=== PATIENT | female | born 1985 | race Caucasian/White ===

== ENCOUNTER 2017-09-04 19:49 | Outpatient (CLI) | payer BC ==
[2017-09-04 20:21] LABS: ADD UMIC YES; UR ASCORBIC ACID NEGATIVE (NEGATIVE); UR BACTERIA FEW /HPF (NONE SEEN); UR BILIRUBIN (Dip) NEGATIVE (NEGATIVE); UR BLOOD (Dip) NEGATIVE (NEGATIVE); UR CLARITY CLEAR (CLEAR); UR COLOR STRAW (YELLOW); UR GLUCOSE (Dip) NEGATIVE (NEGATIVE); UR KETONES (Dip) NEGATIVE (NEGATIVE); UR LEUKOCYTE ESTERASE (Dip) 1+ Leu/ul (NEGATIVE); UR NITRITE (Dip) NEGATIVE (NEGATIVE); UR RBC 0 /HPF (0-5); UR SQUAMOUS EPITHELIAL CELL FEW /HPF (FEW); UR TOTAL PROTEIN (Dip) NEGATIVE (NEGATIVE); UR UROBILINOGEN (Dip) NEGATIVE (NEGATIVE); UR WBC 1 /HPF (0-5)
[2017-09-04 21:31] LABS: RUPTURE FETAL MEMBRANES NEGATIVE (NEGATIVE)
== END 2017-09-04 22:10 | disposition home or self-care (01) ==
LOC: OBT 19:49 → L-D 19:50 → OBT 22:10
DX: O42.913 Preterm premature rupture of membranes, unspecified as to length of time between rupture and onset of labor, third trimester (principal); Z3A.31 31 weeks gestation of pregnancy
CPT/HCPCS: 76815; 81001; 84112

== ENCOUNTER 2017-10-16 19:53 | Inpatient (IN) | payer BC, OTHER ==
[2017-10-16 22:44] LABS: ALANINE AMINOTRANSFERASE 310 IU/L (13-69); ALBUMIN 3.1 g/dl (3.3-4.9); ALKALINE PHOSPHATASE 222 IU/L (42-121); ASPARTATE AMINO TRANSFERASE 97 IU/L (15-46); BILIRUBIN,INDIRECT 0.3 mg/dl (0-1.1); BILIRUBIN,TOTAL 0.3 mg/dl (0.2-1.3); TOTAL PROTEIN 6.2 g/dl (6.1-8.1)
[2017-10-16 22:57] LABS: ADD MAN DIFF? NO
[2017-10-16 22:59] LABS: WHITE BLOOD COUNT 6.5 10^3/ul (4.8-10.8)
[2017-10-16 22:59] LABS: BASOPHILS % 0.5 % (0.0-2.0); EOSINOPHILS # 0.1 10^3/ul (0.0-0.5); EOSINOPHILS % 1.7 % (0.0-7.0); HEMATOCRIT 32.6 % (37.0-47.0); HEMOGLOBIN 10.8 g/dl (12.0-16.0); LYMPHOCYTES # 1.7 10^3/ul (0.8-2.9); LYMPHOCYTES % 26.6 % (15.0-51.0); MEAN CORPUSCULAR HGB CONC 33.1 g/dl (32.0-37.0); MEAN CORPUSCULAR VOLUME 96.4 fl (82.0-101.0); MEAN PLATELET VOLUME 11.4 fl (7.4-10.4); MONOCYTE # 0.7 10^3/ul (0.3-0.9); MONOCYTES % 10.1 % (0.0-11.0); NEUTROPHIL # 3.9 10^3/ul (1.6-7.5); NEUTROPHILS % 60.3 % (39.0-77.0); PLATELET COUNT 254 10^3/UL (140-415); RED BLOOD COUNT 3.38 10^6/ul (4.20-5.40); RED CELL DISTRIBUTION WIDTH 12.6 % (11.5-14.5)
[2017-10-16] MEDS ORDERED: MISOPROSTOL 200 MCG TAB PR (23:00)
[2017-10-16] MEDS ORDERED: OXYTOCIN 30 UNITS/LR 500 ML IV (23:00)
[2017-10-16] MEDS ORDERED: CARBOPROST 250 MCG INJ IM (23:00)
[2017-10-16] MEDS ORDERED: BUTORPHANOL 2 MG INJ IV (23:00)
[2017-10-16] MEDS ORDERED: LIDOCAINE 1% (MPF) 30 ML INJ INJ (23:00)
[2017-10-16] MEDS ORDERED: METHYLERGONOVINE 0.2 MG INJ IM (23:00)
[2017-10-16 23:02] LABS: INR 0.91; PROTIME 12.3 Sec (11.9-14.9)
[2017-10-16 23:03] LABS: PARTIAL THROMBOPLASTIN TIME 27.1 Sec (25.0-35.0)
[2017-10-16] MEDS: LACTATED RINGER'S 1,000 ML IV* (23:46)
[2017-10-17 00:21] LABS: HEPATITIS B SURFACE ANTIGEN NEGATIVE (NEGATIVE)
[2017-10-17] MEDS: LACTATED RINGER'S 1,000 ML IV* ×3 (07:16→22:07)
[2017-10-17] MEDS: ACETAMINOPHEN 325 MG TAB PO ×2 (14:05→19:04)
[2017-10-17] MEDS: OXYTOCIN 30 UNITS/LR 500 ML IV (14:08)
[2017-10-17 22:24] LABS: RAPID PLASMA REAGIN NONREACTIVE (NR)
[2017-10-18] MEDS: LACTATED RINGER'S 1,000 ML IV* ×4 (00:16→20:13)
[2017-10-18] MEDS ORDERED: FENTAnyl 2MCG/ML-ROPIV 0.2% 100 ML (00:17)
[2017-10-18] MEDS ORDERED: NALOXONE (0.4 MG/ML) INJ IV (00:30)
[2017-10-18] MEDS: ASA/ACETAMINOPHEN/CAFF TAB PO (01:00)
[2017-10-18] MEDS: FENTAnyl 2MCG/ML-ROPIV 0.2% 100 ML BAG EPI ×2 (08:17→17:43)
[2017-10-18] MEDS: ONDANSETRON 4 MG INJ IV (08:35)
[2017-10-18] MEDS ORDERED: ASA/ACETAMINOPHEN/CAFF TAB PO (17:30)
[2017-10-18] MEDS: OXYTOCIN 30 UNITS/LR 500 ML IV (21:11)
[2017-10-19] MEDS: FENTAnyl 2MCG/ML-ROPIV 0.2% 100 ML BAG EPI ×3 (02:08→16:41)
[2017-10-19] MEDS: LACTATED RINGER'S 1,000 ML IV* ×3 (04:19→19:16)
[2017-10-19 12:44] LABS: HEPATITIS B SURFACE ANTIGEN NEGATIVE (NEGATIVE)
[2017-10-19] MEDS: OXYTOCIN 30 UNITS/LR 500 ML IV (13:32)
[2017-10-20] MEDS: LACTATED RINGER'S 1,000 ML IV* ×2 (00:15→08:22)
[2017-10-20] MEDS: FENTAnyl 2MCG/ML-ROPIV 0.2% 100 ML BAG EPI ×2 (02:08→10:22)
[2017-10-20] MEDS: OXYTOCIN 30 UNITS/LR 500 ML IV ×3 (03:16→18:03)
[2017-10-20] MEDS ORDERED: DINOPROSTONE 10 MG VAG SUPP VAG (06:00)
[2017-10-20] MEDS: IBUPROFEN 600 MG TAB PO ×2 (15:05→17:55)
[2017-10-20] MEDS: OXYCODONE/ASPIRIN (4.88/325) TAB PO (16:00)
[2017-10-20] MEDS ORDERED: ONDANSETRON 4 MG INJ IV (16:00)
[2017-10-20] MEDS ORDERED: OXYCODONE/ASPIRIN (4.88/325) TAB PO (16:00)
[2017-10-20] MEDS ORDERED: DIBUCAINE 1% 30 GM OINT PR (16:00)
[2017-10-20] MEDS ORDERED: HYDROCODONE/APAP (5/325) TAB PO ×2 (16:00)
[2017-10-20] MEDS: WITCH HAZEL/GLYCERIN PAD PR (16:01)
[2017-10-20] MEDS: BENZOCAINE 20% 56 ML SPRAY TOP (16:01)
[2017-10-20] MEDS: LANOLIN 7 GM TUBE TOP (16:01)
[2017-10-20] MEDS: SENNA/DOCUSATE NA (8.6MG/50MG) TAB PO (20:29)
[2017-10-20] MEDS: ACETAMINOPHEN 325 MG TAB PO (20:33)
[2017-10-21] MEDS: ACETAMINOPHEN 325 MG TAB PO ×5 (00:43→21:32)
[2017-10-21] MEDS: IBUPROFEN 600 MG TAB PO ×4 (06:00→18:00)
[2017-10-21] MEDS: SENNA/DOCUSATE NA (8.6MG/50MG) TAB PO ×2 (08:48→21:31)
[2017-10-21 11:16] LABS: ADD MAN DIFF? NO
[2017-10-21 11:17] LABS: BASOPHILS % 0.3 % (0.0-2.0); EOSINOPHILS # 0.1 10^3/ul (0.0-0.5); EOSINOPHILS % 1.4 % (0.0-7.0); HEMATOCRIT 30.4 % (37.0-47.0); HEMOGLOBIN 10.1 g/dl (12.0-16.0); LYMPHOCYTES # 1.1 10^3/ul (0.8-2.9); LYMPHOCYTES % 17.5 % (15.0-51.0); MEAN CORPUSCULAR HEMOGLOBIN 32.4 pg (29.0-33.0); MEAN CORPUSCULAR HGB CONC 33.2 g/dl (32.0-37.0); MEAN CORPUSCULAR VOLUME 97.4 fl (82.0-101.0); MEAN PLATELET VOLUME 11.5 fl (7.4-10.4); MONOCYTE # 0.5 10^3/ul (0.3-0.9); MONOCYTES % 7.4 % (0.0-11.0); NEUTROPHIL # 4.6 10^3/ul (1.6-7.5); NEUTROPHILS % 72.8 % (39.0-77.0); PLATELET COUNT 239 10^3/UL (140-415); RED BLOOD COUNT 3.12 10^6/ul (4.20-5.40)
[2017-10-21 11:17] LABS: WHITE BLOOD COUNT 6.4 10^3/ul (4.8-10.8)
[2017-10-22] MEDS: ACETAMINOPHEN 325 MG TAB PO (02:04)
[2017-10-22] MEDS: IBUPROFEN 600 MG TAB PO ×2 (06:00)
[2017-10-22] MEDS: MEASLES,MUMPS,RUBELLA VACCINE INJ SC* (09:00)
[2017-10-22] MEDS: SENNA/DOCUSATE NA (8.6MG/50MG) TAB PO (09:00)
[2017-10-22 15:26] LABS: CHENODEOXYCHOLIC ACID 10.9 umol/L (< OR = 3.1); CHOLIC ACID 24.9 umol/L (< OR = 1.8); DEOXYCHOLIC ACID 7.3 umol/L (< OR = 2.4); TOTAL BILE ACIDS 43.1 umol/L (< OR = 6.8)
== END 2017-10-22 13:16 | disposition home or self-care (01) | DRG 775 ==
LOC: OBT 19:53 → L-D 10-17 16:53 → PP1 10-20 15:31 → L-D 19:54 → OBT 22:35 → L-D 22:35
PROVIDERS: Obstetrics & Gynecology
PROC: 10E0XZZ Delivery of Products of Conception, External Approach (ICD-10-PCS; principal; 2017-10-20)
PROC: 0HQ9XZZ Repair Perineum Skin, External Approach (ICD-10-PCS; 2017-10-20)
DX: O70.0 First degree perineal laceration during delivery (principal); Z3A.38 38 weeks gestation of pregnancy; Z37.0 Single live birth
CPT/HCPCS: 62319; 76815; 76818; 80076; 83789; 85025; 85610; 85730; 86592; 86850; 86900; 86901; 87340